=== PATIENT | male | born 1950 | race Caucasian/White ===

== ENCOUNTER 2018-10-05 01:21 | Day surgery (SDC) | payer BC ==
--- NOTE | 2018-10-03 19:13 | HISTORY AND PHYSICAL ---
DATE OF ADMISSION: October 05, 2018 CHIEF COMPLAINT Prostatic enlargement with lower urinary tract symptoms. HISTORY OF PRESENT ILLNESS Patient is a 67-year-old white male with a several-year history of progressive lower urinary tract symptoms with a decreased force of stream and sensation of incomplete emptying. He was originally seen two years ago in the clinic. At that time, he was started on Flomax and had a significant improvement in his symptoms subjectively. At original evaluation, he had a flow rate of 4 and a postvoid of 147 mL. Proscar was subsequently added one month later, and he has had a durable improvement on both of these medicines with a current AUA Symptom Score of 1; however, his flow rate remains decreased at 8 and a postvoid residual of 207. The patient desires to stop the medicines and undergo a procedure. UroLift, standard TURP, and photovaporization of the prostate were discussed. He is quite interested in a minimally invasive procedure. He wants to proceed with the UroLift. He was given approximately 80% chance of improvement with ability to stop the medicines. A 30% retreatment rate over five years was discussed, as well as short-term irritative symptoms with hematuria following the procedure, and a 2% chance of having a Phelps catheter post procedure for a short amount of time. His workup revealed a PSA of 0.34. He has a 55 cc volume prostate, which measures 49 mm long and 44 wide. Flexible cystoscopy revealed a small median lobe of approximately 10 mm in height with touching lateral lobes, and he has a sulcus on the right side of the median lobe, which if required treatment, we would compress the lobe to the patient's left. PAST MEDICAL HISTORY 1. Hypertension. 2. Kidney stones. PAST SURGICAL HISTORY 1. Kidney stones times two. 2. Cataract surgery with retinal detachment. CURRENT MEDICATIONS 1. Finasteride. 2. Flomax. 3. Lisinopril. 4. Hydrochlorothiazide. ALLERGIES No known drug allergies. SOCIAL HISTORY Patient is . He lives in [place], [place]. He denies tobacco or ethanol use. REVIEW OF SYSTEMS Patient denies chest pain, productive cough, fever, chills, gross hematuria, nausea, vomiting, bleeding disorder, or liver disease. PHYSICAL EXAMINATION GENERAL: Patient is a well-developed, well-nourished white male in no acute distress. HEENT: Normocephalic, atraumatic. CHEST: Clear to auscultation bilaterally. CARDIOVASCULAR: Regular rate and rhythm. ABDOMEN: Soft, nontender. No masses are palpated. GENITOURINARY: Deferred to the OR. EXTREMITIES: Without clubbing, cyanosis, or edema. NEUROLOGIC: Nonfocal. IMPRESSION A 67-year-old white male with benign prostatic hypertrophy symptoms, on Flomax and Proscar, who desires to stop medicines and wishes to proceed with a minimally invasive procedure. PLAN Will perform anesthetic cystoscopy with UroLift implants. DINAHD
[2018-10-04 10:39] LABS: PLATELET COUNT, AUTOMATED 248 K/uL (150-450)
--- NOTE | 2018-10-04 10:42 | EKG ---
FACILITY: [facility] [place] PATIENT NAME: MARCO ROSENTHAL : [id number] MR: [id number] V: [id number] EXAM DATE: ORDERING PHYSICIAN: GARDENIA NOEL TECHNOLOGIST: Test Reason : Pre-op Blood Pressure : / mmHG Vent. Rate : 083 BPM Atrial Rate : 083 BPM P-R Int : 148 ms QRS Dur : 138 ms QT Int : 430 ms P-R-T Axes : 054 080 -03 degrees QTc Int : 505 ms Sinus rhythm Right bundle branch block Abnormal ECG No previous ECGs available Confirmed by JULIA RAPHAEL ([id number] on 10/04/2018 1:30:29 PM Referred By: Confirmed By:JULIA RAPHAEL
[~2018-10-05] VITALS: Ht 177.8 cm; Wt 96.2 kg
[~2018-10-05 01:21] MED LIST: AMLO-98 PO; AMOX-559 PO; ASPI81TA94 PO; FINA5TAB67 PO; HYDR-3083 PO; IBU800 PO; LISI-353 PO; LISI-374 PO; LOR5/325 PO; TAMS0.4C25 PO
[2018-10-05 13:22] VITALS: BP 125/0
[2018-10-05] MEDS ORDERED: ONDANSETRON 4 MG/2 ML VIAL ONE (13:24)
[2018-10-05] MEDS ORDERED: PROPOFOL EMUL(*) 10MG/ML 20 ML 20 ML ONE (13:24)
[2018-10-05] MEDS ORDERED: DEXAMETHASONE SOD PHOS 10MG/ML ONE (13:24)
[2018-10-05] MEDS ORDERED: fentaNYL CITR 100 MCG/2 ML AMP ONE (13:25)
[2018-10-05] MEDS ORDERED: WATER FOR IRRIG,STERILE 3000ML IR ONE (14:02)
[2018-10-05] MEDS ORDERED: FAMOTIDINE 20 MG TAB PO ONE (15:00)
[2018-10-05] MEDS ORDERED: NORMOSOL R SOLN(*) 1000 ML BAG 1,000 ML IV PRN (15:00)
[2018-10-05] MEDS ORDERED: LIDOCAINE/SOD BICARB 8.4% SYR ID ONE (15:00)
[2018-10-05] MEDS ORDERED: ceFAZolin(*) 2GM/D5W 50ML 50 ML IVPB ONE (15:00)
[2018-10-05] MEDS ORDERED: MIDAZOLAM 2 MG/2 ML VIAL IVP PRN (15:00)
[2018-10-05] MEDS ORDERED: PHEN200T32 PO (15:05)
[2018-10-05] MEDS ORDERED: CIPR-344 PO (15:05)
[2018-10-05 15:18] VITALS: BP 122/87
[2018-10-05 15:20] VITALS: BP 123/82
--- NOTE | 2018-10-06 23:31 | OPERATIVE REPORT 1 ---
EVENT DATE: October 05, 2018 SURGEON: Thomas Royal MD ANESTHESIOLOGIST: Bryce Briones MD ANESTHESIA: General anesthetic. PREOPERATIVE DIAGNOSIS Benign prostatic hypertrophy with lower urinary tract symptoms. POSTOPERATIVE DIAGNOSIS Benign prostatic hypertrophy with lower urinary tract symptoms. PROCEDURE PERFORMED 1. Cystoscopy. 2. UroLift prostatic urethral implant times five with three on the left and two on the right. ESTIMATED BLOOD LOSS Minimal. INTRAVENOUS FLUIDS Crystalloids. DRAINS 20-Uzbek coude Phelps catheter. COMPLICATIONS None. CONDITION Patient taken to the recovery room awake and in stable condition. STATEMENT OF MEDICAL NECESSITY Patient is a 67-year-old white male with a history of progressive lower urinary tract symptoms, who is currently on Flomax and Proscar, and continues to have moderate symptoms. He currently desires to be off his medicines. Options were discussed including UroLift procedure versus standard transurethral resection of prostate or photovaporization. He desires to undergo UroLift given the minimum invasive nature and potential to preserve sexual function. Operative consent is signed and on the chart. The patient's workup has included a PSA of 0.34. He has a 55 cc volume prostate on ultrasound. Anesthetic cystoscopy revealed a small median lobe with approximately a 10 mm intravesical prostatic protrusion. His current postvoid was 207 and a flow rate of 8. DESCRIPTION OF OPERATION PERFORMED The patient was brought to the operating room. After general anesthetic was obtained, he was placed in the dorsal lithotomy position and prepped and draped in the usual sterile manner. Anesthetic cystoscopy was performed with the 20- Uzbek rigid cystoscope sheath and the zero-degree lens. The patient had a normal-appearing pendulous, bulbar, and membranous urethra. On entering his prostate, his bladder neck was mildly elevated. He had a small median lobe, but did not appear to be a significant obstructing component. His lateral lobes were enlarging and touching on the midline. Upon entering his bladder, he had a 3+ trabeculated bladder with a few small diverticula. There were no foreign bodies or stones seen. At this point, the visual obturator was removed, and the UroLift delivery device was placed inside the cystoscopic sheath. The first treatment site was planned to be performed at the patient's left proximal prostatic urethra approximately 1.5 cm distal to the bladder neck. Therefore, the device was turned in the bladder to the patient's left side, brought down 1.5 cm distal to the bladder neck, and positioned on the anterior one third of the prostate, aiming at approximately the 2 to 3 o'clock position. The lateral lobe was then compressed by angling the device approximately 20 degrees from midline. The needle safety lock was then released, and then ensuring good placement of the device as previously planned, the blue trigger was deployed to release the needle containing the implant through the prostate to the outside. At this point, the lucero lever was pressed to allow the needle to be retracted into the device, thereby delivering the capsular tab. At this point, the implant was tensioned to assure capsular seating and removal of slack monofilament. The suture was placed in the center of the keyhole. The device was angled slightly more medially and advanced proximally approximately 3 mm until the white line was seen on the blue monofilament. At this point, the urethral release button was pressed to affix the urethral endpiece to the monofilament and to cut excessive suture, thereby tailoring the size of the implant at that location in the prostatic urethra. The delivery device was then advanced back into the bladder, and the delivery device was replaced with a new one, keeping the cystoscopic sheath in place. Following this, the same procedure was performed on the patient's right side, again 1.5 cm proximal from the bladder neck. Following this, two additional implants were delivered just to proximal to the verumontanum, one on the right and one on the left side of the prostate with the same technique. At this point, the UroLift delivery device was removed from the sheath and the obturator replaced. Cystoscopy revealed some persistent area of obstruction on the patient's left side, and therefore, one more implant was delivered in the mid prostate on the patient's left in a similar procedure to the other implants. Final cystoscopic exam was performed, first to inspect the location and state of each implant, and second to confirm the presence of the anterior channel with the irrigation flow turned off. The patient was having a mild amount of bleeding from the anterior aspect of the prostatic urethra. Therefore, it was decided to place a Phelps catheter overnight, and a 20-Uzbek coude catheter was placed and placed to gravity drainage. The patient was awakened in the operating room and taken to the recovery in stable condition. PLAN We will allow the patient to be discharged home today with his Phelps catheter in place. We will see him in the Urology Clinic first thing tomorrow morning to remove his catheter and start a voiding trial. He is to continue his Flomax and Proscar as well as three days of Cipro and Pyridium as needed. MTDD
== END 2018-10-05 15:15 | disposition home or self-care (01) ==
LOC: OR 01:21
PROVIDERS: ATTEND Urology
DX: N40.1 Benign prostatic hyperplasia with lower urinary tract symptoms (principal); I10 Essential (primary) hypertension
CPT/HCPCS: 52441; 52442; 81001; 85025; 87077; 87088; 87186; 93005; J1100; J2250; J2405; J2704; J3010; L8699; 82040; 82247; 82310; 82374; 82435; 82565; 82947; 84075; 84132; 84155; 84295; 84450; 84460; 84520; J0690